=== PATIENT | male | born 1980 | race African-American/Black ===

== ENCOUNTER 2019-10-07 23:12 | Emergency (ER) | payer OTHER, SELFPAY ==
[2019-10-07 23:16] VITALS: BP 199/109; PULSE 72; RESP 18; TEMP 37.1; O2SAT 100
--- NOTE | 2019-10-07 23:42 | ED.MALEGU ---
HPI - Male Genitourinary General Chief complaint: Urogenital-Male Stated complaint: erection that won't go away Time Seen by Provider: 10/07/19 23:31 Source: patient and RN notes reviewed Mode of arrival: other Limitations: no limitations History of Present Illness HPI Narrative: Pt is a 39 y/o male who presents to the ED with c/o an erection that began this morning, but has not gone away. Pt denies taking Viagra or having sexual intercourse. Pt has tried using an ice pack and masturbation, but has had no relief of his sx. Pt reports having several similar episodes. Pt notes that he has a blood condition which causes his sx, but he is unable to go further into detail. Pt notes that he has an appointment to see his urologist in October for his sx. Pt denies a fever and penile discharge. Complaint: other (erection that will not go away) Onset (ago): hour(s) (12) Duration: constant Location: penis Relieving factors: none Associated symptoms: Reports denies other symptoms Related Data Sexually active: Yes Home Medications Medication Instructions Recorded Confirmed No Home Medications 10/07/19 10/07/19 Allergies Allergy/AdvReac Type Severity Reaction Status Date / Time lisinopril Allergy Unknown Other Verified 10/07/19 23:14 Review of Systems Review of Systems: All systems reviewed & are unremarkable except as noted in HPI and below Constitutional: Constitutional: Denies fever(s) Genitourinary: Genitourinary: Denies penile discharge and Reports other (erection that will not go away) PMFSH Past Medical History Medical History (Updated 10/08/19 @ 01:20 by Carl Pizarro MD) Asthma HTN (hypertension) Hypospadias Type II diabetes mellitus Surgical History Surgical History (Updated 10/07/19 @ 23:50 by Apoorva Schofield) Hx of gastric bypass Social History Social History Gender identity (if verbalized by the patient): Male Exam Const: General: healthy appearing, no acute distress and well developed Nutritional Appearance: well nourished Orientation/consciousness: patient oriented x3 (alert) and Other orientation findings (Alert) Limitations: no limitations HENMT: Head: normocephalic and atraumatic Ears: external ears normal General nose exam: No nasal discharge present and no epistaxis Face and sinus: face symmetric Mouth: Yes lip normal, Yes tongue normal and Yes moist mucous membranes Throat: other (No exudate, no erythema) Eyes: Conjunctivae: conjunctivae normal Sclera: sclerae normal EOM: EOMs intact bilaterally Neck: Neck: full ROM, no lymphadenopathy and supple Thyroid: thyroid normal Resp: Effort & Inspection: normal respiratory effort : General: Yes no CVA tenderness Penis: Yes other (erection noted) Skin: General skin exam: normal color and no rashes or lesions noted Neuro: General: patient oriented x3 (alert), moves all extremities and no focal motor deficits Cranial nerves: Yes facial symmetry Speech: normal speech Motor exam (neuro): Motor abnormalities not present Extrem: General: normal to inspection, full ROM and no pedal edema Psych: Affect: normal affect Course Consultations Consultation #1: Discussed case with Dr. Munoz (Urology). States is okay with doing the aspiration procedure. Recommends having pt follow up in office tomorrow. Date: 10/08/19 Time: 01:17 Vital Signs Vital signs: Vital Signs Temperature 37.1 C 10/07/19 23:16 Pulse Rate 72 10/07/19 23:16 Respiratory Rate 18 10/07/19 23:16 Blood Pressure 199/109 H 10/07/19 23:16 Pulse Oximetry 100 10/07/19 23:16 Temperature 37.1 C 10/07/19 23:16 Pulse Rate 72 10/07/19 23:16 Respiratory Rate 18 10/07/19 23:16 Blood Pressure 199/109 H 10/07/19 23:16 Pulse Oximetry 100 10/07/19 23:16 Procedures Penile Procedure Penile Procedure #1: Penile Procedure Date: 10/07/19 Penile Procedure Time: 23:45 Time Out Performed: Yes Indication: priap
[2019-10-08 01:40] VITALS: BP 164/91; PULSE 85; RESP 16; O2SAT 100
== END 2019-10-08 01:41 | disposition home or self-care (01) ==
PROVIDERS: Emergency Provider Emergency Medicine
DX: N48.30 Priapism, unspecified (principal); J45.909 Unspecified asthma, uncomplicated; I10 Essential (primary) hypertension; E11.9 Type 2 diabetes mellitus without complications; Z98.84 Bariatric surgery status
CPT/HCPCS: 54220; 99283

== ENCOUNTER 2019-10-13 08:36 | Emergency (ER) | payer OTHER, SELFPAY ==
[2019-10-13 08:47] VITALS: BP 210/120; PULSE 91; RESP 16; TEMP 36.9; O2SAT 100
[2019-10-13] MEDS: LACTATED RINGERS 1,000 ML 999 ML IV CONT (09:23)
[2019-10-13 09:26] VITALS: BP 203/112; PULSE 89; RESP 18; O2SAT 100
[2019-10-13 09:32] LABS: Basophils Absolute Auto 0.1 K/mm3 (0.0-0.1); Basophils Percent Auto 0.9 % (0.2-1.2); Eosinophils Absolute Auto 0.1 K/mm3 (0-0.3); Eosinophils Percent Auto 1.1 % (0-4.4); Hematocrit 27.8 % (42.0-52.0); Hemoglobin 9.2 g/dL (14.0-18.0); Immature Granulocyte Absolute 0.01 K/mm3 (0.00-0.031); Immature Granulocyte Percent A 0.2 % (0-0.5); Lymphocytes Absolute Auto 2.52 K/mm3 (0.9-3.2); Lymphocytes Percent Auto 45.2 % (18.3-44.2); Mean Corpuscular HGB Conc 33.1 g/dl (32-36); Mean Corpuscular Hemoglobin 19.9 pg (26-34); Mean Platelet Volume 8.4 fl (7.4-10.4); Monocytes Absolute Auto 0.5 K/mm3 (0.1-0.6); Monocytes Percent Auto 9.3 % (2.6-8.5); Neutrophils Absolute Auto 2.4 K/mm3 (1.3-6.7); Neutrophils Percent Auto 43.3 % (45.5-73.1); Platelet Count Result 550 k/mm3 (150-375); Red Blood Count 4.63 M/mm3 (4.6-6.20); White Blood Count 5.6 K/mm3 (4.5-10.0)
[2019-10-13 09:44] LABS: Blood Urea Nitrogen 17 mg/dL (9-20); Calcium 9.1 mg/dL (8.4-10.2); Carbon Dioxide 27 mmol/L (22-30); Chloride 104 mmol/L (98-107); Estimated CRCL calculation 76 ml/min; Estimated Glomerular Filt Rate > 60; Glucose 117 mg/dL (75-110); Potassium 4.6 mmol/L (3.4-5.0); Sodium 139 mmol/L (137-145)
--- NOTE | 2019-10-13 09:54 | ED.ABDPAIN ---
HPI - Abdominal Pain General Chief Complaint: Urogenital-Male Stated Complaint: priapism Time Seen by Provider: 10/13/19 09:03 Source: patient Mode of arrival: ambulatory Limitations: no limitations History of Present Illness HPI narrative: Patient is a 39-year-old male who presents to emergency department for evaluation of priapism that began at 3 AM this morning patient notes painful erection with moderate aching pain worse with manipulation patient had had a similar occurrence 5 days ago was seen in the emergency department had injection with resolution of symptoms. Patient denies any fever chills nausea vomiting or recent illness or having taken any medications. Related Data Home Medications Medication Instructions Recorded Confirmed amlodipine 10/13/19 Allergies Allergy/AdvReac Type Severity Reaction Status Date / Time lisinopril Allergy Unknown Other Verified 10/13/19 09:27 Review of Systems Review of Systems: Narrative: CONSTITUTIONAL: Denies fever, chills, or sweats. EYES: Denies redness, or discharge. ENT: Denies rhinorrhea, congestion, sore throat, or otalgia. RESPIRATORY: Denies cough or dyspnea. GASTROINTESTINAL: Denies abdominal pain, nausea, vomiting, or diarrhea. GENITOURINARY: Denies dysuria or hematuria. SKIN: Denies rash or itching. MUSCULOSKELETAL: Denies back pain, joint pain, or myalgia. [facility] Past Medical History Medical History Asthma HTN (hypertension) Hypospadias Type II diabetes mellitus Surgical History Surgical History Hx of gastric bypass Social History Social History Gender identity (if verbalized by the patient): Male Exam Narrative: Exam Narrative: GENERAL: Well-appearing, well-nourished, and in no acute distress. HEAD: Normocephalic, atraumatic. EYES: PERRLA and EOMI. ENT: Nares clear, no rhinorrhea or epistaxis. Mucous membranes moist. Oropharynx without tonsillar hypertrophy exudate or other lesions. NECK: Supple. No adenopathy or masses. CHEST: Clear to auscultation. No respiratory distress. No wheezes rales or rhonchi HEART: Regular rate and rhythm. No murmur heard. Normal peripheral pulses. ABDOMEN: Soft, nontender, nondistended MALE GENITOURINARY: Patient with elongated erect penis consistent with priapism no other abnormalities noted EXTREMITIES: Normal range of motion. No edema. SKIN: Warm, dry, no rash. NEURO: No focal deficits. Alert and oriented x3. PSYCH: Normal mood and affect. Course Consultations Consultation #1: Discussed case with Dr. Alfonso with urology who would like phenylephrine and lidocaine by the bedside and will see the patient in the emergency department Date: 10/13/19 Vital Signs Vital signs: Vital Signs Temperature 98.4 F 10/13/19 08:47 Pulse Rate 91 10/13/19 08:47 Respiratory Rate 16 10/13/19 08:47 Blood Pressure 210/120 H 10/13/19 08:47 Pulse Oximetry 100 10/13/19 08:47 Temperature 98.4 F 10/13/19 08:47 Pulse Rate 89 10/13/19 09:26 Respiratory Rate 18 10/13/19 09:26 Blood Pressure 203/112 H 10/13/19 09:26 Pulse Oximetry 100 10/13/19 09:26 MDM - Abdominal Pain MDM Narrative Medical decision making narrative: Patient aspiration and injections in the emergency department by urology with resolution of the priapism has follow-up with his urologist on Sunday resting comfortably in the room feeling much better at this time Lab Data Result diagrams: 10/13/19 09:25 10/13/19 09:25 Labs: Lab Results 10/13/19 10/13/19 Range/Units 09:25 09:25 WBC 5.6 (4.5-10.0) K/mm3 RBC 4.63 (4.6-6.20) M/mm3 Hgb 9.2 L (14.0-18.0) g/dL Hct 27.8 L (42.0-52.0) % MCV 60.0 L (80-100) fl MCH 19.9 L (26-34) pg MCHC 33.1 (32-36) g/dl RDW 19.0 H (11.5-14.5) % Plt Count 550 H (15
[2019-10-13] MEDS: PHENYLEPHRINE HCL INJ 10 MG, SODIUM CHLORIDE 0.9% INJ 19 ML I-CAVERN (10:32)
[2019-10-13 10:56] VITALS: BP 175/103; PULSE 77; RESP 18; O2SAT 97
[2019-10-13 11:07] LABS: Add Urine Microscopic? YES; Appearance Urine Clear (Clear); Bacteria Urine Trace /hpf; Bilirubin Urine Negative (Negative); Blood Urine 2+ (Negative); Color Urine Yellow (Yellow); Glucose Urine UA Negative (Negative); Ketones Urine Trace mg/dL (Negative); Leukocyte Esterase Ur Negative LEU/UL (Negative); Mucus Urine Rare /lpf; Nitrate Urine Negative (Negative); Protein Urine 2+ mg/dL (Negative); Specific Grav Ur 1.019 (1.001-1.035); Squamous Epithelial Cell Urine Rare /hpf (Few); WBC Urine 0-3 /hpf
--- NOTE | 2019-10-13 13:31 | WPDURCON ---
Assessment and Plan Assessment and plan (1) Priapism: Code(s): N48.30 - Priapism, unspecified Status: Acute Assessment and Plan: I performed a penile block with 1% lidocaine. I was able to irrigate and aspirate 20 cc of blood from each corporal body. I then injected 1 cc of phenylephrine 500 mics per meal bilaterally. This resulted in resolution of his priapism. He is set to see Hematology. He has not helped patient plate with a urologist on Sunday. He is stable for discharge home from the emergency room. Urology Consult Note HPI Date Seen: 10/13/19 Primary Care Provider: UNKNOWN,DOCTOR Consult Narrative Narrative: Michael Alvarez is a 39 year old male he is being seen at the request of OLIVA Tomas in the emergency room. He has a history of an unknown blood disorder. 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 He has had a history of recurrent priapism. I injected him myself about a year ago. She was last in the ER at the beginning of last week with priapism. It was aspirated and injected with resolution of symptoms. He woke up this morning at 3:00 a.m. with onset of priapism. He had a painful penile erection. He is not on any medications which would induce this. He presented to the emergency room. I was able to perform a penile block with 1% lidocaine. I aspirated approximately 20 cc of blood from the corpora bilaterally. I then injected phenylephrine bilaterally. This resulted in resolution of his priapism. I sent him home with a dressing which removed tomorrow. He has no other complaints. No dysuria. He is able to void. Review of Systems Review of Systems: All systems reviewed & are unremarkable except as noted in HPI and below Constitutional: Constitutional: Denies chills Eyes: Eyes: Denies no additional eye complaints Cardiovascular: Cardiovascular: Denies leg edema Respiratory: Respiratory: Reports no additional respiratory complaints Genitourinary: Genitourinary: Denies dysuria [facility] Past Medical History Medical History Asthma HTN (hypertension) Hypospadias Type II diabetes mellitus Surgical History Surgical History Hx of gastric bypass Social History Social History Gender identity (if verbalized by the patient): Male Comments Family history noncontributory. There is no history of sickle cell disease. Social history includes he is . Meds Home Medications and Allergies Home Medications Medication Instructions Recorded Confirmed Type amlodipine 10/13/19 History Allergies Allergy/AdvReac Type Severity Reaction Status Date / Time lisinopril Allergy Unknown Other Verified 10/13/19 09:27 Vital Signs Vital Signs - 24 hr 10/13/19 08:47 10/13/19 09:26 10/13/19 10:56 Temperature 98.4 F Pulse Rate 91 89 77 Respiratory Rate 16 18 18 Blood Pressure 210/120 H 203/112 H 175/103 H Pulse Oximetry 100 100 97 Exam Const: General: no acute distress HENMT: Mouth: Yes moist mucous membranes abnormal Eyes: EOM: EOMs intact bilaterally Neck: Neck: supple and no JVD Resp: Effort & Inspection: normal respiratory effort Cardio: Rate: regular rate Rhythm: regular rhythm GI: Inspection: non-distended : Other: Mild hypospadias. He has priapism with engorgement of the corpora cavernosa and sparing of the corpora spongiosum. Scrotum is normal. Testicles feel normal. Skin: General skin exam: no rashes or lesions noted Neuro: Sensory Exam: normal sensation Extrem: General: normal to inspection Psych: Speech and movement: Normal speech and movement present Affect: normal affect Results Labs CBC & Chem 7: 10/13/19 09:25 10/13/19 09:25 Labs: Short CBC 10/13/19 Range/Units 09:25 WBC 5.6 (4.5-
== END 2019-10-13 10:58 | disposition home or self-care (01) ==
PROVIDERS: Emergency Medicine Emergency Medical Services; Emergency Provider Emergency Medicine
DX: N48.30 Priapism, unspecified (principal); J45.909 Unspecified asthma, uncomplicated; I10 Essential (primary) hypertension; E11.9 Type 2 diabetes mellitus without complications
CPT/HCPCS: 36415; 54220; 80048; 81001; 85025; 96361; 96374; 96375; 99284; J0131; J2370; J3360; J7120

== ENCOUNTER 2019-10-19 06:23 | Emergency (ER) | payer OTHER, SELFPAY ==
[2019-10-19 06:26] VITALS: BP 183/99; PULSE 80; RESP 18; TEMP 36.7; O2SAT 100
--- NOTE | 2019-10-19 06:46 | ED.MALEGU ---
HPI - Male Genitourinary General Chief complaint: Urogenital-Male Stated complaint: erection Time Seen by Provider: 10/19/19 06:37 Source: patient Mode of arrival: ambulatory Limitations: no limitations History of Present Illness HPI Narrative: Patient is a 39-year-old male who presents to the emergency department with complaint of recurrent priapism. Patient reports onset of symptoms approximately 1:00 this morning. Patient has been seen in this emergency department numerous times for priapism over the past year. Patient recently saw a urologist in the office 2 days ago and was prescribed testosterone to help try and prevent recurrent events. Patient states that prescription was not ready at his pharmacy yesterday when he went to pick it up. Patient has also recently been seen by hematology and diagnosed with hemoglobin C trait. Complaint: other (priapism) Onset (ago): hour(s) Duration: constant Location: penis Related Data Home Medications Medication Instructions Recorded Confirmed amlodipine 10/13/19 Allergies Allergy/AdvReac Type Severity Reaction Status Date / Time lisinopril Allergy Unknown Other Verified 10/19/19 06:50 Review of Systems Review of Systems: All systems reviewed & are unremarkable except as noted in HPI and below ENT: Reports post nasal drip and Reports sinus pressure Respiratory: Respiratory: Reports cough PMFSH Past Medical History Medical History (Updated 10/19/19 @ 09:22 by Nancy White MD) Asthma HTN (hypertension) Hypospadias Priapism Type II diabetes mellitus No longer on medications after gastric bypass surgery and weight loss Surgical History Surgical History Hx of gastric bypass Social History Social History (Updated 10/19/19 @ 07:09 by Nancy White MD) Smoking status: Never smoker Gender identity (if verbalized by the patient): Male Exam Const: General: cooperative, alert and uncomfortable Nutritional Appearance: well nourished Orientation/consciousness: patient oriented x3 Limitations: no limitations HENMT: Mouth: Yes lip normal and Yes moist mucous membranes Resp: Effort & Inspection: normal respiratory effort Auscultation: clear to auscultation bilaterally Cardio: Rate: regular rate Rhythm: regular rhythm GI: GI Palp: Yes Soft to palpation and No Tenderness to palpation present (GI) Auscultation: normal bowel sounds : Penis: Yes circumcised and Yes priapism Skin: General skin exam: normal color Neuro: General: patient oriented x3 Cognition (Neuro): normal cognition Speech: normal speech Extrem: General: normal to inspection, full ROM and no clubbing, cyanosis or edema Psych: Mental Status: mental status grossly normal Affect: normal affect Attitude: cooperative Course Course Emergency Course: Patient with no recurrence of priapism after treatment in the emergency department after treatment by urologist. Patient advised importance of urology follow-up and to remain consistent and where he is receiving his care so that his emergency visits for priapism are in the same system/facility as where he is getting his urology follow-up to avoid seeing multiple groups of specialist for the same problem, especially given his follow-up has been inconsistent. Reevaluation(s) Reevaluation #1: Dr. Michael came to the ED and evaluated patient. Penile shaft aspirated for blood and phenylephrine injected. Patient with detumescence of his priapism. Will reevaluate after inpatient rounds to ensure patient has not recurred. Date: 10/19/19 Time: 08:00 Consultations Consultation #1: Discussed with Dr. Michael, urology, who will come evaluate patient. Requested phenylephrine at bedside for injection. Date: 10/19/19 Time: 06:13 Vital Signs Vital signs: Vital Signs Temperature 98.1 F 10/19/19 06:26 Pulse Rate 80 10/19/19 06:26 Respiratory Rate 18 10/19/19 06:26 Blood
[2019-10-19 06:48] VITALS: BP 176/109; PULSE 78; RESP 20; O2SAT 100
[2019-10-19] MEDS: KETOROLAC 30 MG/ML VIAL (*BKC) IV PUSH (07:03)
[2019-10-19] MEDS: LACTATED RINGERS 1,000 ML 999 ML IV CONT (07:03)
[2019-10-19] MEDS: LIDOCAINE HCL 1% LOCAL INJ 20 ML VIAL INFILTRATE (07:45)
[2019-10-19] MEDS: PHENYLEPHRINE HCL INJ 10 MG, SODIUM CHLORIDE 0.9% INJ 19 ML I-CAVERN (07:45)
[2019-10-19 07:50] VITALS: BP 181/106; PULSE 85; RESP 26; O2SAT 100
[2019-10-19 07:55] LABS: Fractional Inspired Oxygen 21 %; HCO3 VBG 24.9 mEq/l (24.0-30.0)
[2019-10-19 07:57] LABS: PCO2 VBG 124.7 mmHg (42.0-48.0); pH VBG 6.919 (7.300-7.400)
--- NOTE | 2019-10-19 08:26 | WPDURCON ---
Assessment and Plan Assessment and plan (1) Priapism: Code(s): N48.30 - Priapism, unspecified Status: Acute Assessment and Plan: He has recurrent priapsm. He is in pain and distress. Treatments, alternatives, risks and benefits discussed. Given this is a medical emergency, we proceeded with immediate treatment the bedside. Lidocaine was used for a penile block and skin anesthesia. I gave phenylephrine injections, total 5 ml injected in 1 ml aliquots every 5 min, and proceeded with needle drainage of the penis with 18 gauge needles and irrigation as needed. A penile blood gas was sent. His vitals were monitored at the bedside. He has underlying high BP, which was high today as well, and he states he has not taken his BP medications at this point. He achieved complete detumescence and pain resolved. He tolerated the procedure well. He will f/u with either our clinic or with [facility] per his preference. I encouraged him to consolidate his urologic care with one urologist. I also encouraged him to consider learning self injections to detumesce at home. He will consider. Urology Consult Note HPI Date Seen: 10/19/19 Primary Care Provider: UNKNOWN,DOCTOR Consult Narrative Narrative: Michael Alvarez is a 39 year old male with history of recurrent priapism who presents to the ER today with another episode of priapsm that started at 1 am this morning. He recently as treated by Dr Davalos 10/13/19. He saw a urologist from [facility] for discussion of his priapsm last week and was given he thinks ketoconazole to begin chemical castration in efforts to help his priapsm. He has been reluctant to start this given side effects and so has yet to take his first dose. No fever, chills, nausea,vomiting. No baseline voiding complaints. he has had 6 episodes of priapsm in the past 12 mo. No personal or family h/o prostate, kidney, bladder cancer or kidney stones. He states he has been recently dx with sickle cell trait. He denies use of drugs except for his home amlodipine. Review of Systems Review of Systems: All systems reviewed & are unremarkable except as noted in HPI and below (HPI) [facility] Past Medical History Medical History (Updated 10/19/19 @ 09:22 by Nancy White MD) Asthma HTN (hypertension) Hypospadias Priapism Type II diabetes mellitus No longer on medications after gastric bypass surgery and weight loss Surgical History Surgical History Hx of gastric bypass Social History Social History (Updated 10/19/19 @ 07:09 by Nancy White MD) Smoking status: Never smoker Gender identity (if verbalized by the patient): Male Meds Home Medications and Allergies Home Medications Medication Instructions Recorded Confirmed Type amlodipine 10/13/19 History Allergies Allergy/AdvReac Type Severity Reaction Status Date / Time lisinopril Allergy Unknown Other Verified 10/19/19 06:50 Vital Signs Vital Signs - 24 hr 10/19/19 06:26 10/19/19 06:48 Temperature 36.7 C Pulse Rate 80 78 Respiratory Rate 18 20 Blood Pressure 183/99 H 176/109 H Pulse Oximetry 100 100 Exam Const: General: in distress and uncomfortable Eyes: General: appearance normal, both eyes and all related structures EOM: EOMs intact bilaterally Neck: Other: moves well Resp: Effort & Inspection: normal respiratory effort Cardio: Rate: regular rate Rhythm: regular rhythm GI: Other: SNTND : Other: fully erect phallus with lateral bulges from prior injections/drainage. testes descended bilaterally, no masses. Neuro: Cognition (Neuro): normal cognition Speech: normal speech Extrem: General: normal to inspection and no edema Psych: Speech and movement: Normal speech and movement present Affect: normal affect
[2019-10-19 08:49] VITALS: BP 167/89; PULSE 76; RESP 16; O2SAT 100
[2019-10-19 09:30] VITALS: BP 154/96; PULSE 87; RESP 17; O2SAT 100
--- NOTE | 2019-10-19 09:43 | PM.PROC ---
Procedure Note - Detailed Date of procedure: 10/19/19 Pre-op diagnosis: erection Surgeon: pre op dx priapsm post op dx priapsm surgeon Cristian Michael MD procedure injection of phenylephyrine at bedside and needle insertion with irrigation of penis complications none anesthesia, penile cord block and skin injections with lidocaine indications He has recurrent priapsm. He is in pain and distress. Treatments, alternatives, risks and benefits discussed. Given this is a medical emergency, we proceeded with immediate treatment the bedside. He is in agreement. Procedure. penis was prepped and draped in standard sterile fashion. betadine was used. Lidocaine was then used for a penile block and skin anesthesia. I then gave phenylephrine injections, total 5 ml injected in 1 ml aliquots every 5 min, and proceeded with needle drainage of the penis with 18 gauge needles and irrigation as needed. A penile blood gas was sent. His vitals were monitored at the bedside. He has underlying high BP, which was high today as well, and he states he has not taken his BP medications at this point. He achieved complete detumesence. He tolerated the procedure well.
[2019-10-20 10:03] LABS: Device ROOM AIR
== END 2019-10-19 09:30 | disposition home or self-care (01) ==
PROVIDERS: Emergency Provider Emergency Medicine
DX: N48.30 Priapism, unspecified (principal); J45.909 Unspecified asthma, uncomplicated; Q54.9 Hypospadias, unspecified; E11.9 Type 2 diabetes mellitus without complications; Z98.84 Bariatric surgery status
CPT/HCPCS: 36415; 54220; 82803; 96361; 96374; 96375; 99284; J0131; J1885; J2370; J3010; J7120

== ENCOUNTER 2019-10-25 11:54 | Emergency (ER) | payer OTHER, SELFPAY ==
[2019-10-25 12:00] VITALS: BP 138/88; PULSE 79; RESP 18; TEMP 36.7; O2SAT 100
--- NOTE | 2019-10-25 12:24 | ED.MALEGU ---
HPI - Male Genitourinary General Chief complaint: Urogenital-Male <Miriam Fuller MD - Last Filed: 10/25/19 23:44> Stated complaint: priapism <Miriam Fuller MD - Last Filed: 10/25/19 23:44> Time Seen by Provider: 10/25/19 12:20 <Miriam Fuller MD - Last Filed: 10/25/19 23:44> Source: patient <Miriam Fuller MD - Last Filed: 10/25/19 23:44> Mode of arrival: ambulatory <Miriam Fuller MD - Last Filed: 10/25/19 23:44> Limitations: no limitations <Miriam Fuller MD - Last Filed: 10/25/19 23:44> History of Present Illness HPI Narrative: The pt is a 39 y/o black male who presents to the ED c/o priapism onset today around 0530. Pt states that he has a PMHx of priapism, and that he has presented to this ED for similar episodes on 10/13/19 and 10/19/19. Pt states that he followed up with urology and received Testosterone and Folic acid. Pt states that he has experienced episodes of this over the week, but states that they have resolved with ice packs. He notes today, ice packs have not provided relief. Pt notes that he last urinated one hour ago. Pt states that he has a hematology consult due to the discovery of Hemoglobin C trait, and that he will be seeing a boiler water tester at [place]. Pt notes that he started experiencing these episodes after he was put on iron around the time of his gastric bypass. He states that he stopped taking iron, but the episodes continued, so he was put back on this. Pt notes that he takes four separate HTN medications. <Mirima Fuller MD - Last Filed: 10/25/19 23:44> MD Complaint: other (Priapism) <Miriam Fuller MD - Last Filed: 10/25/19 23:44> Onset (ago): hour(s) (approximately 7 ) <Miriam Fuller MD - Last Filed: 10/25/19 23:44> Location: penis <Miriam Fuller MD - Last Filed: 10/25/19 23:44> Severity: similar to previous episodes <Miriam Fuller MD - Last Filed: 10/25/19 23:44> Relieving factors: none <Miriam Fuller MD - Last Filed: 10/25/19 23:44> Associated symptoms: Reports denies other symptoms <Miriam Fuller MD - Last Filed: 10/25/19 23:44> Related Data Home medications: Home Medications Medication Instructions Recorded Confirmed amlodipine 10 mg PO DAILY 10/25/19 bicalutamide 50 mg PO DAILY 10/25/19 ferrous sulfate 325 mg PO DAILY 10/25/19 folic acid 1 mg PO DAILY 10/25/19 furosemide 20 mg PO DAILY 10/25/19 hydrochlorothiazide 25 mg PO DAILY 10/25/19 losartan 100 mg PO DAILY 10/25/19 metoprolol succinate 25 mg PO DAILY 10/25/19 <Miriam Fuller MD - Last Filed: 10/25/19 23:44> Allergies/Adverse reactions: Allergies Allergy/AdvReac Type Severity Reaction Status Date / Time lisinopril Allergy Unknown Other Verified 10/25/19 12:09 <Miriam Fuller MD - Last Filed: 10/25/19 23:44> Review of Systems Review of Systems: All systems reviewed & are unremarkable except as noted in HPI and below <Miriam Fuller MD - Last Filed: 10/25/19 23:44> Genitourinary: Genitourinary: Reports other (Priapism) <Miriam Fuller MD - Last Filed: 10/25/19 23:44> [facility] Past Medical History Medical History: Medical History (Updated 10/25/19 @ 14:25 by Miriam Fuller MD) Asthma HTN (hypertension) Hypospadias Priapism Type II diabetes mellitus No longer on medications after gastric bypass surgery and weight loss <Miriam Fuller MD - Last Filed: 10/25/19 23:44> Surgical History Surgical History: Surgical History Hx of gastric bypass <Miriam Fuller MD - Last Filed: 10/25/19 23:44> Social History Social History: Social History (Updated 10/19/19 @ 07:09 by Nancy White MD) Smoking status: Never smoker Gender identity (if verbalized by the patient): Male <Miriam Fuller MD - Last Filed: 10/25/19 23:44> Exam Narrative: Exam Narrative: GENERAL: Well-rosalee
[2019-10-25 14:47] VITALS: BP 148/90; PULSE 78; RESP 16; O2SAT 100
== END 2019-10-25 14:48 | disposition home or self-care (01) ==
PROVIDERS: Emergency Provider General Practice
DX: N48.30 Priapism, unspecified (principal); Z98.84 Bariatric surgery status; D58.2 Other hemoglobinopathies; J45.909 Unspecified asthma, uncomplicated; I10 Essential (primary) hypertension; Q54.9 Hypospadias, unspecified; E11.9 Type 2 diabetes mellitus without complications
CPT/HCPCS: 54220; 96374; 99284; J2370

== ENCOUNTER 2021-03-08 12:57 | Emergency (ER) | payer OTHER, SELFPAY ==
[2021-03-08 13:05] VITALS: BP 191/111; PULSE 77; RESP 18; TEMP 36.4; O2SAT 99
--- NOTE | 2021-03-08 13:19 | ED.GENADULT ---
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 He states he woke up this morning with an erection that has been sustained since 8 am this morning. He had to take his child to the doctor so he was unable to come to ER early. His last episode of priapism was October of last year. He reports he has been doing well so he has not follow up with urology since last year. He states he takes hypertension medication and iron supplementation. He is hypertensive in ER and he states he has not taken his antihypertensive today. Related Data Home Medications Medication Instructions Recorded Confirmed amlodipine 10 mg PO DAILY 10/25/19 bicalutamide 50 mg PO DAILY 10/25/19 ferrous sulfate 325 mg PO DAILY 10/25/19 folic acid 1 mg PO DAILY 10/25/19 furosemide 20 mg PO DAILY 10/25/19 hydrochlorothiazide 25 mg PO DAILY 10/25/19 losartan 100 mg PO DAILY 10/25/19 metoprolol succinate 25 mg PO DAILY 10/25/19 Allergies Allergy/AdvReac Type Severity Reaction Status Date / Time lisinopril Allergy Unknown Other Verified 03/08/21 13:10 Review of Systems Review of Systems: All systems reviewed & are unremarkable except as noted in HPI and below Constitutional: Constitutional: Denies chills and Denies fever(s) Cardiovascular: Cardiovascular: Denies chest pain Respiratory: Respiratory: Denies cough and Denies dyspnea PMFSH Past Medical History Medical History Asthma HTN (hypertension) Hypospadias Priapism Type II diabetes mellitus No longer on medications after gastric bypass surgery and weight loss Surgical History Surgical History Hx of gastric bypass Social History Social History Smoking status: Never smoker Gender identity (if verbalized by the patient): Male Exam Const: General: no acute distress and alert Orientation/consciousness: patient oriented x3 HENMT: Head: normocephalic and atraumatic Face and sinus: face symmetric Mouth: Yes Normal oral and palatal mucosa present, Yes lip normal, Yes oropharynx normal and Yes moist mucous membranes Eyes: EOM: EOMs intact bilaterally Resp: Effort & Inspection: normal respiratory effort and no retractions Auscultation: clear to auscultation bilaterally Cardio: Rate: regular rate Rhythm: regular rhythm Heart sounds: no murmurs GI: GI Palp: Yes Soft to palpation, No Tenderness to palpation present (GI) and No Guarding due to palpation present (GI) Auscultation: normal bowel sounds : Penis: Yes circumcised Other: erection present Neuro: General: patient oriented x3, moves all extremities and CN's II-XI intact bilaterally Gait exam (Neuro): Normal gait present Course Reevaluation(s) Reevaluation #1: Patient states he feels better. Dr. Gamez for urology came down to ER and he treated patient's priapism with phenylephrine injection and aspiration. Patient has been hypertensive because he had not taken his medications. He was given his meds in ER and he is BP is 177/100. He states that is his baseline and he is ready for discharge . Date: 03/08/21 Time: 16:11 Vital Signs Vital signs: Vital Signs Temperature 97.6 F 03/08/21 13:05 Pulse Rate 77 03/08/21 13:05 Respiratory Rate 18 03/08/21 13:05 Blood Pressure 191/111 H 03/08/21 13:05 Pulse Oximetry 99 03/08/21 13:05 Temperature 97.6 F 03/08/21 13:05 Pulse Rate 87 03/08/21 16:29 Respiratory Rate 18 03/08/21
--- NOTE | 2021-03-08 13:32 | PC.NURSE ---
called pharmacy to make medication for patient
[2021-03-08 14:22] VITALS: BP 197/116; PULSE 74; RESP 18; O2SAT 100
--- NOTE | 2021-03-08 14:25 | PC.NURSE ---
Dr. Gamez in room to drain penis
[2021-03-08 14:29] VITALS: BP 202/121; PULSE 88; RESP 20; O2SAT 100
[2021-03-08] MEDS: PHENYLEPHRINE HCL INJ 10 MG, SODIUM CHLORIDE 0.9% INJ 19 ML I-CAVERN (14:41)
--- NOTE | 2021-03-08 15:06 | WPDURCON ---
Assessment and Plan Assessment and plan (1) Priapism: Code(s): N48.30 - Priapism, unspecified Status: Acute Assessment and Plan: Patient was prepped and draped usual sterile fashion. We did a penile block using 1% lidocaine. We then placed an 18 gauge needle into the right corpora. 30 cc of dark colored blood was aspirated. We then injected 1 cc of phenylephrine. There was adequate detumescence at this time. Ice pack was applied to his penile area. Patient will be discharged home. He can follow-up with Dr. Munoz as he wants to be established with our practice for this issue. Urology Consult Note HPI Date Seen: 03/08/21 Primary Care Provider: PHYSICIAN NOT ON STAFF Consult Narrative Narrative: Michael Alvarez is a 40 year old male With a history of hypertension, hemoglobin C trait who has had recurrent priapism. It has been about a year since his last episode. He awoke this morning and noticed he had an erection that would not go way. He presented the emergency room for further evaluation management. Patient had seen Dr. Davalos and as well as Dr. Michael approximately 1 year ago. Review of Systems Review of Systems: All systems reviewed & are unremarkable except as noted in HPI and below PMFSH Past Medical History Medical History Asthma HTN (hypertension) Hypospadias Priapism Type II diabetes mellitus No longer on medications after gastric bypass surgery and weight loss Surgical History Surgical History Hx of gastric bypass Social History Social History Smoking status: Never smoker Gender identity (if verbalized by the patient): Male Meds Home Medications and Allergies Home Medications Medication Instructions Recorded Confirmed Type amlodipine 10 mg PO DAILY 10/25/19 History bicalutamide 50 mg PO DAILY 10/25/19 History ferrous sulfate 325 mg PO DAILY 10/25/19 History folic acid 1 mg PO DAILY 10/25/19 History furosemide 20 mg PO DAILY 10/25/19 History hydrochlorothiazide 25 mg PO DAILY 10/25/19 History losartan 100 mg PO DAILY 10/25/19 History metoprolol succinate 25 mg PO DAILY 10/25/19 History Allergies Allergy/AdvReac Type Severity Reaction Status Date / Time lisinopril Allergy Unknown Other Verified 03/08/21 13:10 Vital Signs Vital Signs - 24 hr 03/08/21 13:05 03/08/21 14:22 03/08/21 14:29 Temperature 36.4 C Pulse Rate 77 74 88 Respiratory Rate 18 18 20 Blood Pressure 191/111 H 197/116 H 202/121 H Pulse Oximetry 99 100 100 Exam Const: General: cooperative; No comfortable HENMT: Head: normal to inspection Chest: Chest palpation & inspection: normal inspection of the chest Resp: Effort & Inspection: normal respiratory effort Cardio: Rate: regular rate Rhythm: regular rhythm : Penis: Yes circumcised and Yes priapism
[2021-03-08] MEDS: amLODIPine BESYLATE 5 MG TABLET 10 MG PO (15:16)
[2021-03-08 15:17] VITALS: PULSE 75
[2021-03-08] MEDS: METOPROLOL SUCCINATE EXT REL 25 MG TABCR PO (15:17)
[2021-03-08] MEDS: LOSARTAN POTASSIUM 100 MG TABLET PO (15:17)
[2021-03-08 16:29] VITALS: BP 177/104; PULSE 87; RESP 18; O2SAT 98
== END 2021-03-08 16:30 | disposition home or self-care (01) ==
PROVIDERS: Emergency Provider General Practice
DX: N48.30 Priapism, unspecified (principal); I10 Essential (primary) hypertension; J45.909 Unspecified asthma, uncomplicated; D58.2 Other hemoglobinopathies; E11.9 Type 2 diabetes mellitus without complications; Z98.84 Bariatric surgery status
CPT/HCPCS: 54220; 96374; 99284; A9270; J2370

== ENCOUNTER 2025-04-07 11:12 | Emergency (ER) | payer SELFPAY ==
--- NOTE | 2025-04-07 11:22 | ED_ITS ---
HPI - URI/Sore Throat General Chief Complaint: Upper Respiratory Infection Stated Complaint: Fever/Sore Throat Time Seen by Provider: 04/07/25 11:34 Source: patient and RN notes reviewed Mode of arrival: ambulatory Limitations: no limitations History of Present Illness HPI Narrative: 44-year-old male presents with concern for sore throat, chills, low-grade fever. Reports symptoms started few days ago. He has been taking Aleve. He denies known sick contacts. MD elicited complaint: sore throat Related Data Home Medications ?Medication ?Instructions ?Recorded ?Confirmed ?Last Taken ?Type amlodipine 10 mg tablet 10 mg PO DAILY 10/25/19 Unknown History bicalutamide 50 mg tablet 50 mg PO DAILY 10/25/19 Unknown History ferrous sulfate 325 mg (65 mg 325 mg PO DAILY 10/25/19 Unknown History iron) tablet folic acid 1 mg tablet 1 mg PO DAILY 10/25/19 Unknown History furosemide 20 mg tablet 20 mg PO DAILY 10/25/19 Unknown History hydrochlorothiazide 25 mg tablet 25 mg PO DAILY 10/25/19 Unknown History losartan 100 mg tablet 100 mg PO DAILY 10/25/19 Unknown History metoprolol succinate 25 mg 25 mg PO DAILY 10/25/19 Unknown History tablet,extended release 24 hr empagliflozin 10 mg tablet mg 04/07/25 Unknown History (Jardiance) Allergies Allergy/AdvReac Type Severity Reaction Status Date / Time lisinopril Allergy Unknown Other Verified 04/07/25 11:21 Review of Systems Review of Systems: CONSTITUTIONAL: Reports malaise, chills, fever. EYES: Denies visual changes, redness, or discharge. ENT: Denies rhinorrhea, congestion, sinus pain, otalgia. Reports sore throat. CARDIOVASCULAR: Denies chest pain, palpitations, or edema. RESPIRATORY: Denies cough. Denies dyspnea. GASTROINTESTINAL: Denies abdominal pain, nausea, vomiting, diarrhea SKIN: Denies rash or itching. MUSCULOSKELETAL: Reports myalgia. NEUROLOGIC: Denies headache. All systems reviewed & are unremarkable except as noted in HPI and below PMFSH Past Medical History Medical History Asthma HTN (hypertension) Hypospadias Priapism Type II diabetes mellitus No longer on medications after gastric bypass surgery and weight loss Surgical History Surgical History Hx of gastric bypass Social History Social History Smoking status: Never smoker Gender identity (if verbalized by the patient): Male Comments At time of signature, agree with nursing past medical, surgical, social and family history. There is no relevant family history pertinent to the presenting complaint Exam Narrative: GENERAL: Well-appearing, well-nourished, and in no acute distress. HEAD: Normocephalic EYES: PERRLA, conjunctivae clear ENT: Nares clear. Mucous membranes moist. TM pearly lin with dull light reflex bilaterally; no tragal tenderness. Oropharynx erythematous without lesions. Tonsils enlarged and without exudate, no drooling, no hoarseness, no trismus, uvula midline. NECK: Supple. No lymphadenopathy CHEST: Clear to auscultation, breath sounds equal. No wheezing, rhonchi, rales, or stridor. No respiratory distress, speaks in full sentences. HEART: Regular rate and rhythm. No murmur heard. SKIN: Warm, dry, no rash. NEURO: Alert and oriented x3. PSYCH: Normal mood and affect Course Course Emergency Course: Patient is aware of diagnosis, understands and agrees to treatment plan. Anticipatory guidance given. Patient agrees to follow-up as directed and is aware of reasons to seek care at the emergency department. Portions of this record may have been created with voice recognition software Level of Care: Express Care Visit Vital Signs Vital signs: Reviewed. MDM - URI/Sore Throat MDM Narrative Medical decision making narrative: Differential diagnosis considered: Aguilar virus, strep pharyngitis, allergic rhinitis, upper respiratory tract infection, sinusitis, rhinosinusitis, nasopharyngitis. viral pharyngitis, otitis media, otitis externa, pneumonia, bronchitis, viral cough syndrome, viral syndrome, and influenza. Exam findings show no acute concerns or changes; patient is non-toxic appearing and is in no distress. Patient is appropriate for outpatient treatment and follow-up. Lab Data Attestation: I reviewed the patient's lab results. Critical Care Time Critical Care Time Critical Care Time: No Discharge Plan Discharge Clinical Impression: Acute streptococcal pharyngitis Patient Disposition: Home Condition: Stable Instructions: Antibiotic Form, Strep Throat (ED) Additional Instructions: -Take the medication as prescribed. Throw away the toothbrush after 24hours of antibiotic. -Eat and drink things that are easy to swallow, like tea or soup, or popsicles to suck on. -Oral rinses such as: Salt water gargles and/or may use topical anesthetic (eg. Chloraseptic spray) or lozenges to relieve dryness or throat pain). -Take Tylenol and ibuprofen as needed for pain and fever as directed. -Frequent hand washing or hand finish molder is one of the best ways to prevent spread of infection. -Follow up with primary care provider in 2-3 days if condition is not improving; or seek ER visit if you have trouble breathing, cannot drink enough fluids, have muffled voice, difficulty opening your mouth, or severe swelling. Patient Language: [place] Prescriptions: New penicillin V potassium 500 mg tablet 500 mg PO Q12H 10 Days Qty: 20 0RF No Action Jardiance 10 mg tablet bicalutamide 50 mg tablet 50 mg PO DAILY amlodipine 10 mg tablet 10 mg PO DAILY ferrous sulfate 325 mg (65 mg iron) tablet 325 mg PO DAILY folic acid 1 mg tablet 1 mg PO DAILY hydrochlorothiazide 25 mg tablet 25 mg PO DAILY furosemide 20 mg tablet 20 mg PO DAILY metoprolol succinate 25 mg tablet extended release 24 hr 25 mg PO DAILY losartan 100 mg tablet 100 mg PO DAILY Follow-up/Referrals: Raysa,Charles Ware MD [Primary Care Provider] - Time of Disposition: 11:41
[2025-04-07 11:27] VITALS: BP 157/85; PULSE 91; RESP 16; TEMP 36.7; O2SAT 100
[2025-04-07 11:38] LABS: EDCOVIDSCREEN Negative (Negative); EDINFLUASCREEN Negative (Negative); EDINFLUBSCREEN Negative (Negative); EDSTREPNEGPOS1 Positive (Negative)
== END 2025-04-07 11:43 | disposition home or self-care (01) ==
PROVIDERS: Emergency Provider Nurse Practitioner; PCP Family Medicine
DX: J02.0 Streptococcal pharyngitis (principal); Z20.822 Contact with and (suspected) exposure to COVID-19; I10 Essential (primary) hypertension; J45.909 Unspecified asthma, uncomplicated; Z98.84 Bariatric surgery status
CPT/HCPCS: 87426; 87804; 87880; 99213; G0463